=== PATIENT | female | born 1995 | race Hispanic/Latino ===

== ENCOUNTER 2022-07-25 21:48 | Inpatient (IN) | payer MEDICAID, OTHER, SELFPAY ==
[2022-07-25] MEDS ORDERED: hydrALAZINE 20 MG/ML VIAL SLOW IVP PRN (22:08)
[2022-07-25 22:22] VITALS: BMI 25.4
[2022-07-25] MEDS ORDERED: Penicillin G Potassium 5 MILL.UNITS VIAL ONE (22:56)
[2022-07-25] MEDS ORDERED: Terbutaline Sulfate 1 MG/ML VIAL ONE (22:57)
[2022-07-25] MEDS ORDERED: Ibuprofen 800 MG TAB PO PRN (22:57)
[2022-07-25] MEDS ORDERED: Misoprostol 200 MCG TAB PR PRN (22:57)
[2022-07-25] MEDS ORDERED: Acetaminophen 500 MG TAB PO PRN (22:57)
[2022-07-25] MEDS ORDERED: Promethazine HCl 25 MG/ML VIAL IM PRN (22:57)
[2022-07-25] MEDS ORDERED: Ondansetron PF 4 MG/2 ML Vial IVP PRN (22:57)
[2022-07-25] MEDS ORDERED: Betamet Acet/Betamet Na Ph 30 MG/5 ML VIAL ONE (22:57)
[2022-07-25] MEDS ORDERED: Lidocaine 1% (PF) 30 ML VIAL SC PRN (22:57)
[2022-07-25] MEDS ORDERED: Carboprost 250 MCG/ML AMP IM PRN (22:57)
[2022-07-25] MEDS ORDERED: Lactated Ringer's 1,000 ML IV SCH (23:00)
[2022-07-25] MEDS ORDERED: Betamet Acet/Betamet Na Ph 30 MG/5 ML VIAL IM SCH (23:00)
[2022-07-25] MEDS ORDERED: Terbutaline Sulfate 1 MG/ML VIAL SC SCH (23:00)
[2022-07-25] MEDS ORDERED: NS w/ Oxytocin 30 units 500 ML IV SCH (23:00)
[2022-07-25 23:05] LABS: Bilirubin Neg (Negative); Blood, Urine 150 (Negative); CAUTI Indications for Culture Dysuria,urgency,freq; Clarity Slightly Cloudy (Clear); Glucose, Urine (Dipstick) Normal (Negative); Ketone, Urine Negative (Negative); Leukocyte Negative (Negative); Nitrite Negative (Negative); Protein, Urine (Dipstick) 15 mg/dl (Neg-Trace); Urobilinogen Normal mg/dL (Less than 2)
[2022-07-25 23:14] LABS: Squamous Epithelial 0-3 HPF (0-3); WBC/HPF 0-3 HPF (0-3)
[2022-07-25 23:15] LABS: Bacteria/HPF None Seen HPF (None Seen); Urine Culture Reflex No No
[2022-07-25] MEDS ORDERED: Penicillin G Potassium 5 MILL.UNITS in Sodium Chloride 0.9% 100 ML IVPB SCH (23:30)
[2022-07-25 23:33] LABS: Creatinine, Urine 55.33 mg/dL (47-110)
[2022-07-25 23:49] LABS: ALT (SGPT) 13 U/L (8-55); AST (SGOT) 18 U/L (5-34); Albumin 3.3 g/dL (3.5-5.0); Alkaline Phosphatase 244 U/L (40-110); Anion Gap 14 mmol/L (10-20); BUN (Urea Nitrogen) 10 mg/dL (7.0-18.7); Bilirubin, Total 0.5 mg/dL (0.2-1.2); Calc. Creatinine Clearance 114 mL/min (70-130); Calcium 8.4 mg/dL (7.8-10.44); Carbon Dioxide 18 mmol/L (22-29); Chloride 111 mmol/L (98-107); Estimated GFR 118; Glucose 111 mg/dL (70-105); Potassium 3.9 mmol/L (3.5-5.1); Protein, Total 6.3 g/dL (6.0-8.3); Sodium 139 mmol/L (136-145)
[2022-07-26 00:07] LABS: Syphilis Antibody Nonreactive (Nonreactive); Syphilis Antibody Index 0.06 S/CO (<1.00 Non-Reactive)
[2022-07-26 00:10] LABS: HBSAg Index 0.17 S/CO (0-0.99); HIV (1/2) Antibody/Antigen Non-Reactive (NonReactive); HIV 1/2 INDEX 0.11 S/CO (<1.00); Hep B Surf Ag Non-Reactive S/CO (NonReactive)
[2022-07-26 00:55] LABS: #Monocytes 0.5 10x3/uL (0.0-1.1); #Neutrophils 6.8 10x3/uL (1.5-8.4); %Basophils 0.2 % (0.0-2.0); %Eosinophils 0.1 % (0.0-6.0); %Lymphocytes 30.8 % (18.0-47.0); %Monocytes 4.7 % (0.0-10.0); %Neutrophils 63.8 % (40.0-75.0); Hemoglobin 11.1 g/dL (12.0-15.5); Mean Corpuscular HGB CONC 33.7 g/dL (32.0-36.0); Mean Corpuscular Hemoglobin 28.8 pg (27.0-33.0); Mean Corpuscular Volume 85.2 fl (81.6-98.3); Platelet Count 169 10x3/uL (150-450); RBC Distribution Width 14.6 % (11.5-14.5); Red Blood Cell (RBC) Count 3.86 10x6/uL (3.90-5.03); White Blood Cell (WBC) Count 10.6 10x3/uL (3.5-10.5)
[2022-07-26] MEDS ORDERED: Butorphanol Tartrate 1 MG/ML VIAL ONE (02:30)
[2022-07-26] MEDS ORDERED: Penicillin G 2.5 MILL.units 2.5 MILL.UNITS in Premix Bag 1 BAG IVPB SCH (04:00)
[2022-07-26] MEDS ORDERED: Butorphanol Tartrate 1 MG/ML VIAL SLOW IVP SCH (04:00)
[2022-07-26] MEDS ORDERED: Butorphanol Tartrate 1 MG/ML VIAL SLOW IVP PRN (04:54)
[2022-07-26] MEDS ORDERED: Lidocaine 1% (PF) 30 ML VIAL ONE (05:03)
[2022-07-26] MEDS ORDERED: Misoprostol 200 MCG TAB ONE (05:03)
[2022-07-26] MEDS ORDERED: Tranexamic Acid 1,000 MG/10 ML VIAL ONE (05:04)
[2022-07-26] MEDS ORDERED: NS w/ Oxytocin 30 units 500 ML ONE (05:04)
[2022-07-26] MEDS ORDERED: Methylergonovine 0.2 MG/ML VIAL ONE (05:04)
[2022-07-26] MEDS ORDERED: Carboprost 250 MCG/ML AMP ONE (05:04)
[2022-07-26] MEDS ORDERED: Ibuprofen 600 MG TAB PO PRN (06:44)
[2022-07-26] MEDS ORDERED: Methylergonovine 0.2 MG/ML VIAL IM PRN (08:05)
[2022-07-26] MEDS ORDERED: Boostrix 0.5 ML (Tdap) VIAL (>/=7 yrs of age) IM ONE (08:05)
[2022-07-26] MEDS ORDERED: Lanolin Ointment 7 GM TUBE TOP PRN (08:05)
[2022-07-26] MEDS ORDERED: Milk Of Magnesia 30 ML UDCUP PO PRN (08:05)
[2022-07-26] MEDS ORDERED: Bisacodyl 10 MG SUPP PR PRN (08:05)
[2022-07-26] MEDS ORDERED: Preparation H Ointment 28 GM TUBE PR PRN (08:05)
[2022-07-26] MEDS: Ferrous Sulfate 325 MG TAB PO SCH ×2 (08:54→09:34)
[2022-07-26] MEDS: Benzocaine-Menthol 82.5 ML CAN TOP SCH ×3 (09:08→21:22)
[2022-07-26] MEDS: Docusate 100 MG CAP PO SCH ×2 (09:09→21:22)
[2022-07-26] MEDS: Prenatal Vitamin 1 TAB PO SCH (09:09)
[2022-07-26] MEDS: Ibuprofen 800 MG TAB PO SCH ×2 (13:06→21:22)
[2022-07-27] MEDS: Ibuprofen 800 MG TAB PO SCH ×3 (05:45→21:47)
[2022-07-27] MEDS: Benzocaine-Menthol 82.5 ML CAN TOP SCH (05:47)
[2022-07-27] MEDS: Ferrous Sulfate 325 MG TAB PO SCH (15:12)
[2022-07-27] MEDS: Prenatal Vitamin 1 TAB PO SCH (15:13)
[2022-07-27] MEDS: Docusate 100 MG CAP PO SCH ×2 (15:13→21:47)
[2022-07-28] MEDS: Ibuprofen 800 MG TAB PO SCH ×2 (05:11→14:13)
[2022-07-28] MEDS: Benzocaine-Menthol 82.5 ML CAN TOP SCH ×4 (07:23→14:08)
[2022-07-28] MEDS: Ferrous Sulfate 325 MG TAB PO SCH ×3 (07:24→17:39)
[2022-07-28] MEDS: Prenatal Vitamin 1 TAB PO SCH (08:20)
[2022-07-28] MEDS: Docusate 100 MG CAP PO SCH (08:20)
[2022-07-28 08:27] VITALS: BP 124/84; TEMP 97.9
== END 2022-07-28 19:15 | disposition home or self-care (01) | DRG 807 ==
LOC: CSHLD/OP 21:48 → CSHLD 23:22 → CSHPP 07-26 08:25
PROVIDERS: ADMIT Family Medicine; ATTEND Family Medicine
PROC: 10E0XZZ Delivery of Products of Conception, External Approach (ICD-10-PCS; principal; 2022-07-26)
PROC: 0UQMXZZ Repair Vulva, External Approach (ICD-10-PCS; 2022-07-26)
DX: O60.14X0 Preterm labor third trimester with preterm delivery third trimester, not applicable or unspecified (principal); Z37.0 Single live birth; Z3A.34 34 weeks gestation of pregnancy; O71.82 Other specified trauma to perineum and vulva; O62.2 Other uterine inertia
CPT/HCPCS: 36415; 80053; 81001; 82570; 84156; 85014; 85018; 85025; 86780; 86850; 86900; 86901; 87340; 87389; 99285; J0595; J0702; J2001; J2210; J2540; J3105; J3490